=== PATIENT | male | born 1990 | race Two or more races ===

== ENCOUNTER 2020-04-02 20:15 | Emergency (ER) | payer OTHER, SELFPAY ==
--- NOTE | ~2020-04-02 | XR_ITS ---
EXAMINATION: XR ankle LT min 3V DATE: 04/02/2020 20:58 INDICATION: Left ankle pain after fall TECHNIQUE: Anteroposterior, lateral, mortise, and additional oblique view of the ankle were obtained. COMPARISON: 03/05/2017 FINDINGS: A subtle oblique lucency is seen in the posterior aspect of the distal tibia on the lateral view. No additional acute osseous findings are suspected. Surgical changes are noted in the calcaneu s and midfoot. IMPRESSION: 1. Subtle oblique lucency in the posterior aspect of the distal tibia which could reflect nondisplace d fracture. Reviewed, dictated and finalized at location A. IMPRESSION: 1. Subtle oblique lucency in the posterior aspect of the distal tibia which cou ld reflect nondisplaced fracture.
[2020-04-02 20:18] VITALS: BP 163/112; PULSE 93; RESP 16; TEMP 37.6; O2SAT 99
--- NOTE | 2020-04-02 21:37 | ED.LOWEXIN ---
HPI - Extremity Injury (Lower) General Chief Complaint: Extremity Injury, Lower Stated Complaint: fall down 10 stairs, left foot pain Time Seen by Provider: 04/02/20 20:22 History of Present Illness HPI Narrative: Patient is a 29-year-old male who presents the ER with left ankle pain. Patient fell down some stairs and is unsure how twisted. He did not strike his head or lose consciousness. He has mild tingling over the dorsum of the foot. Range of motion intact. Pain radiates from the left medial malleolus into the Achilles. No issues with plantar flexion. Has pain with bearing weight. Elevated temperature here but denies fevers. Reports he is working from home. Related Data Allergies Allergy/AdvReac Type Severity Reaction Status Date / Time amoxicillin Allergy Unknown Verified 03/05/17 11:15 Review of Systems Constitutional: Constitutional: Denies chills, Denies fever(s) and Denies weakness ENT: Denies nasal congestion and Denies sore throat Musculoskeletal: Musculoskeletal: Reports arthralgias and Reports joint swelling PMFSH Past Medical History Medical History (Updated 04/02/20 @ 21:47 by Jd Meijas MD) Clubfoot Surgical History Surgical History (Updated 04/02/20 @ 21:42 by Jd Mejias MD) H/O foot surgery Social History Social History (Updated 04/02/20 @ 21:43 by Jd Mejias MD) Smoking status: Never smoker Exam Narrative: Exam Narrative: GENERAL: Well-appearing, well-nourished, and in no acute distress. HEAD: Normocephalic, atraumatic. EXTREMITIES: Normal range of motion of left lower extremity.. Mild swelling anterior to the left medial malleolus with tenderness. Additional posterior medial malleoli or tenderness. Intact patellar tendon with palpation and with reflexive plantarflexion with calf squeezing. Normal dorsalis and posterior tibial pulses. Sharp touch intact. SKIN: Warm, dry, no rash. NEURO: No focal deficits. Alert and oriented x3. PSYCH: Normal mood and affect. Course Course Emergency Course: Informed of results. research tech placing splint. Patient will be given crutches. Does not require work note. Vital Signs Vital signs: Vital Signs Temperature 99.7 F H 04/02/20 20:18 Pulse Rate 93 04/02/20 20:18 Respiratory Rate 16 04/02/20 20:18 Blood Pressure 163/112 H 04/02/20 20:18 Pulse Oximetry 99 04/02/20 20:18 Temperature 99.7 F H 04/02/20 20:18 Pulse Rate 93 04/02/20 20:18 Respiratory Rate 16 04/02/20 20:18 Blood Pressure 163/112 H 04/02/20 20:18 Pulse Oximetry 99 04/02/20 20:18 Procedures Orthopedic Splinting/Casting Injury #1: Splinting/Casting Date: 04/02/20 Splinting/Casting Time: 21:44 Side: left Lower Extremity Injury Location: ankle Lower Extremity Immobilizer: stirrup splint Splint: customized in ED OCL: stirrup Pre-Procedure Neuro Vascular Exam: normal Post-Procedure Neuro Vascular Exam: normal Other Orthopedic Equipment: crutches MDM - Extremity Injury (Lower) Imaging Data Radiologist's impression: ITS Impressions Ankle X-Ray 04/02/20 21:02 IMPRESSION: 1. Subtle oblique lucency in the posterior aspect of the distal tibia which could reflect nondisplaced fracture. Discharge Plan Discharge Clinical Impression: Medial malleolar fracture Qualifiers: Encounter type: initial encounter Fracture type: closed Fracture alignment: nondisplaced Laterality: left Qualified Code(s): S82.55XA - Nondisplaced fracture of medial malleolus of left tibia, initial encounter for closed fracture Patient Disposition: Home, Self-Care Condition: Stable Instructions: Ankle Fracture (ED), R.I.C.E. Treatment (ED) Additional Instructions: Return to the ER if you have chest pain or shortness of breath, you lose consciousness, you have increased pain in your lower extremity, or you have a cold blue toes. Prescriptions: New hydrocodone-ac
[2020-04-02 22:29] VITALS: BP 134/89; PULSE 89; RESP 18; TEMP 37.3; O2SAT 99
== END 2020-04-02 22:30 | disposition home or self-care (01) ==
PROVIDERS: Emergency Provider Emergency Medicine
DX: S82.55XA Nondisplaced fracture of medial malleolus of left tibia, initial encounter for closed fracture (principal); W10.9XXA Fall (on) (from) unspecified stairs and steps, initial encounter
CPT/HCPCS: 29515; 73610; 99284; A9270

== ENCOUNTER 2020-05-20 12:27 | Outpatient (CLI) | payer OTHER, SELFPAY ==
--- NOTE | ~2020-05-20 | XR_ITS ---
EXAMINATION: XR abdomen obstructive series DATE: 05/20/2020 12:58 INDICATION: Lower abdomen pain TECHNIQUE: Supine and upright views of the abdomen. FINDINGS: No prior studies for comparison. The visualized lung parenchyma is normal.. There is a bowel gas pattern. Gas and stool are seen throu ghout the colon to the level of the rectum. There is no free air. IMPRESSION: 1. No acute abdominal abnormality. Reviewed, dictated and finalized at location A.
== END 2020-05-20 12:28 | disposition home or self-care (01) ==
PROVIDERS: Visit Provider Nurse Practitioner
DX: R10.30 Lower abdominal pain, unspecified (principal); R19.7 Diarrhea, unspecified
CPT/HCPCS: 74019

== ENCOUNTER 2021-01-04 12:24 | Emergency (ER) | payer OTHER, SELFPAY ==
[2021-01-04 12:45] VITALS: BP 150/89; PULSE 78; RESP 17; TEMP 36.4; O2SAT 99
--- NOTE | 2021-01-04 13:00 | PC.NURSE ---
pt denies new stressors. states things are going well in his relationship and doesnt understand why hes having the thoughts of self harm at this time. admits to having suicidal thoughts with a plan to overdose on pills. pt pleasant and cooperative with staff.
[2021-01-04 13:01] LABS: Basophils Percent Auto 0.4 % (0.2-1.2); Eosinophils Absolute Auto 0.1 K/mm3 (0-0.3); Hematocrit 47.9 % (42.0-52.0); Hemoglobin 16.3 g/dL (14.0-18.0); Immature Granulocyte Absolute 0.08 K/mm3 (0.00-0.031); Immature Granulocyte Percent A 0.8 % (0-0.5); Lymphocytes Absolute Auto 1.86 K/mm3 (0.9-3.2); Lymphocytes Percent Auto 18.2 % (18.3-44.2); Mean Corpuscular Hemoglobin 29.9 pg (26-34); Mean Corpuscular Volume 87.9 fl (80-100); Mean Platelet Volume 10.7 fl (7.4-10.4); Monocytes Absolute Auto 0.7 K/mm3 (0.1-0.6); Monocytes Percent Auto 6.4 % (2.6-8.5); Neutrophils Absolute Auto 7.5 K/mm3 (1.3-6.7); Neutrophils Percent Auto 73.2 % (45.5-73.1); Platelet Count Result 214 k/mm3 (150-375); Red Blood Count 5.45 M/mm3 (4.6-6.20); Red Cell Distribution Width 12.3 % (11.5-14.5); White Blood Count 10.2 K/mm3 (4.5-10.0)
[2021-01-04 13:15] LABS: Ethanol < 10 mg/dL (<10)
--- NOTE | 2021-01-04 13:44 | ED.GENADULT ---
HPI - General Adult General Chief complaint: Psychiatric Symptoms <Coral Almazan MD - Last Filed: 01/17/21 12:22> Stated complaint: SI <Coral Almazan MD - Last Filed: 01/17/21 12:22> Time Seen by Provider: 01/04/21 12:39 <Coral Almazan MD - Last Filed: 01/17/21 12:22> Source: patient <Coral Almazan MD - Last Filed: 01/17/21 12:22> History of Present Illness HPI narrative: Patient is a 30 y/o male complaining of having bad thoughts for 1 week. He is thinking about cutting his wrist or overdosing on drugs. There is no known alleviating or exacerbating factor. He admits using marijuana intermittently. <Coral Almazan MD - Last Filed: 01/17/21 12:22> Related Data Home medications: Home Medications Medication Instructions Recorded Confirmed bupropion HCl mg PO 01/04/21 01/04/21 sertraline mg 01/04/21 sertraline mg 01/04/21 trazodone 01/04/21 <Coral Almazan MD - Last Filed: 01/17/21 12:22> Allergies/adverse reactions: Allergies Allergy/AdvReac Type Severity Reaction Status Date / Time amoxicillin Allergy Unknown Unknown Verified 01/04/21 12:43 <Coral Almazan MD - Last Filed: 01/17/21 12:22> Review of Systems Constitutional: Constitutional: Denies chills, Denies fever(s), Denies headache(s) and Denies weakness <Coral Almazan MD - Last Filed: 01/17/21 12:22> Eyes: Eyes: Denies blurry vision <Coral Almazan MD - Last Filed: 01/17/21 12:22> ENT: Denies headache(s) and Denies neck pain <Coral Almazan MD - Last Filed: 01/17/21 12:22> Cardiovascular: Cardiovascular: Denies chest pain and Denies dyspnea <Coral Almazan MD - Last Filed: 01/17/21 12:22> Respiratory: Respiratory: Denies cough and Denies dyspnea <Coral Almazan MD - Last Filed: 01/17/21 12:22> Gastrointestinal: Gastrointestinal: Denies abdominal pain, Denies diarrhea, Denies nausea and Denies vomiting <Coral Almazan MD - Last Filed: 01/17/21 12:22> Genitourinary: Genitourinary: Denies hematuria and Denies dysuria <Coral Almazan MD - Last Filed: 01/17/21 12:22> Musculoskeletal: Musculoskeletal: Denies back pain and Denies neck pain <Coral Almazan MD - Last Filed: 01/17/21 12:22> Neurologic: Denies headache(s) and Denies weakness <Coral Almazan MD - Last Filed: 01/17/21 12:22> Psychiatric: Psychiatric: Reports as per HPI and Reports suicidal ideation <Coral Almazan MD - Last Filed: 01/17/21 12:22> PMFSH Past Medical History Medical History: Medical History Clubfoot Fracture of posterior malleolus of left tibia <Coral Almazan MD - Last Filed: 01/17/21 12:22> Surgical History Surgical History: Surgical History History of detached retina repair (~2011) History of foot surgery Arch Reconstruction Roland Feet (2008 & 2009) <Coral Almazan MD - Last Filed: 01/17/21 12:22> Family History Family History: Family History Unknown Skin cancer Arthritis Osteogenesis imperfecta <Coral Almazan MD - Last Filed: 01/17/21 12:22> Social History Social History: Social History Smoking status: Current every day smoker Alcohol intake: never Gender identity (if verbalized by the patient): Male <Coral Almazan MD - Last Filed: 01/17/21 12:22> Exam Const: General: no acute distress and well developed <Coral Almazan MD - Last Filed: 01/17/21 12:22> Orientation/consciousness: oriented to person, oriented to place, oriented to time and patient oriented x3 <Coral Almazan MD - Last Filed: 01/17/21 12:22> HENMT: Head: normocephalic <Coral Almazan MD - Last Filed: 01/17/21 12:22> Ears: external ears normal <Coral Almazan MD - Last Filed: 01/17/21 12:22> General nose exam: Normal external nose present <Coral Almazan MD - Last Filed: 01/17/21 12:22>
[2021-01-04 14:23] LABS: Add Urine Microscopic? YES; Appearance Urine Clear (Clear); Bacteria Urine Trace /hpf; Bilirubin Urine Negative (Negative); Blood Urine Negative (Negative); Color Urine Yellow (Yellow); Glucose Urine UA Negative (Negative); Ketones Urine Negative (Negative); Leukocyte Esterase Ur Negative LEU/UL (Negative); Mucus Urine Heavy /lpf; Nitrate Urine Negative (Negative); Protein Urine 2+ mg/dL (Negative); RBC Urine 0-2 /hpf (0-2); Specific Grav Ur 1.025 (1.001-1.035); Urobilinogen Urine Negative mg/dL (<2.0); WBC Urine 0-3 /hpf
[2021-01-04 14:44] LABS: Alanine Aminotransferase 37 U/L (4-50); Albumin Level 4.7 g/dL (3.5-5.1); Alkaline Phosphatase 90 U/L (38-126); Anion Gap 9 mmol/L (8-16); Aspartate Amino Transferase 36 U/L (17-59); Bilirubin,Total 0.4 mg/dL (0.2-1.3); Blood Urea Nitrogen 10 mg/dL (9-20); Calcium 9.8 mg/dL (8.4-10.2); Carbon Dioxide 27 mmol/L (22-30); Chloride 104 mmol/L (98-107); Estimated CRCL calculation 124 ml/min; Estimated Glomerular Filt Rate > 60; Glucose 95 mg/dL (75-110); Potassium 4.1 mmol/L (3.4-5.0); Sodium 140 mmol/L (137-145)
[2021-01-04 16:05] LABS: Amphetamine Screen Urine Negative (Negative); Barbiturate Screen Urine Negative (Negative); Benzodiazepines Screen Urine Negative (Negative); Cannabinoid Screen Urine Positive (Negative); Cocaine Screen Urine Negative (Negative); Methadone Screen Urine Negative (Negative); Opiate Screen Urine Negative (Negative); Phencyclidine Screen Urine Negative (Negative)
--- NOTE | 2021-01-04 20:22 | PC.NURSE ---
Counselor from Crisis was interviewing patient. Pt gave counselor a broken soda tab and said he was cutting his left arm with it. Noted scratches on left arm.
[2021-01-04 20:40] VITALS: BP 169/79; PULSE 68; RESP 16; TEMP 37.1; O2SAT 99
[2021-01-04 21:18] LABS: SARS-CoV-2 RNA PCR Negative
--- NOTE | 2021-01-04 22:34 | PC.NURSE ---
Spoke with Sj at [facility]. Dr. Swan willing to accept. Need drug screen and voluntary form faxed to them [phone]. Nurse from [facility] will call for report shortly.
[2021-01-04 23:00] VITALS: BP 147/105; PULSE 70; RESP 12; O2SAT 100
--- NOTE | 2021-01-04 23:00 | PC.NURSE ---
Assumed care of Pt. at this time. Report from Mylene, RN
--- NOTE | 2021-01-04 23:06 | PC.NURSE ---
1485Pedro Gamboa from [facility] called in regard to needing paperwork faxed to [phone]
--- NOTE | 2021-01-05 00:15 | PC.NURSE ---
faxed paperwork to [facility]
--- NOTE | 2021-01-05 01:15 | PC.NURSE ---
Pt. accepted at [facility]. PT. bed number 58-1. RN report given to BRE Fernando at [phone]
--- NOTE | 2021-01-05 01:26 | PC.NURSE ---
[facility] contacted for Pt. transport to [facility] [id number]
[2021-01-05 01:50] VITALS: BP 133/87; PULSE 86; RESP 12; O2SAT 97
== END 2021-01-05 02:50 ==
PROVIDERS: Emergency Medicine; Emergency Provider Emergency Medicine; PCP Registered Nurse
DX: R45.851 Suicidal ideations (principal); F17.200 Nicotine dependence, unspecified, uncomplicated; Z20.822 Contact with and (suspected) exposure to COVID-19
CPT/HCPCS: 36415; 80053; 80307; 81001; 84443; 85025; 99285; C9803; U0003; U0005

== ENCOUNTER 2021-03-29 07:48 | Emergency (ER) | payer OTHER, SELFPAY ==
[2021-03-29 07:57] VITALS: BP 162/81; PULSE 60; RESP 15; TEMP 36.2; O2SAT 100
--- NOTE | 2021-03-29 08:42 | PC.NURSE ---
Addendum entered by Christopher Olivera RN 03/29/21 13:37: Sitter at bedside per pt being high risk. States will continue to encourage pt to void. Original Note: Pt unable to void.
--- NOTE | 2021-03-29 08:55 | PC.NURSE ---
Attempts to void unsuccessful.
[2021-03-29 09:40] LABS: Basophils Percent Auto 0.6 % (0.2-1.2); Eosinophils Absolute Auto 0.1 K/mm3 (0-0.3); Eosinophils Percent Auto 1.1 % (0-4.4); Hematocrit 45.9 % (42.0-52.0); Hemoglobin 15.6 g/dL (14.0-18.0); Immature Granulocyte Absolute 0.05 K/mm3 (0.00-0.031); Immature Granulocyte Percent A 0.7 % (0-0.5); Lymphocytes Absolute Auto 1.67 K/mm3 (0.9-3.2); Mean Corpuscular Hemoglobin 29.8 pg (26-34); Mean Corpuscular Volume 87.8 fl (80-100); Mean Platelet Volume 10.3 fl (7.4-10.4); Monocytes Absolute Auto 0.5 K/mm3 (0.1-0.6); Monocytes Percent Auto 7.2 % (2.6-8.5); Neutrophils Absolute Auto 4.9 K/mm3 (1.3-6.7); Neutrophils Percent Auto 67.4 % (45.5-73.1); Platelet Count Result 214 k/mm3 (150-375); Red Blood Count 5.23 M/mm3 (4.6-6.20); Red Cell Distribution Width 12.4 % (11.5-14.5); White Blood Count 7.3 K/mm3 (4.5-10.0)
--- NOTE | 2021-03-29 09:46 | ED.PSYCH ---
HPI - Psych General Chief Complaint: Psychiatric Symptoms Stated Complaint: thoughts of self harm Time Seen by Provider: 03/29/21 07:56 History of Present Illness HPI Narrative: Patient is a 30-year-old male who presents ER with thoughts of self-harm. He had thoughts of putting himself in the shower and overdosing his home medications. He takes sertraline for depression. He has been hospitalized in the past. No recent self-mutilation. Denies any intoxicants. Self-harm thoughts began 2 days ago. Related Data Home Medications Medication Instructions Recorded Confirmed bupropion HCl mg PO 01/04/21 01/04/21 sertraline mg 01/04/21 sertraline mg 01/04/21 trazodone 01/04/21 Allergies Allergy/AdvReac Type Severity Reaction Status Date / Time amoxicillin Allergy Unknown Unknown Verified 01/04/21 12:43 Review of Systems Review of Systems: All systems reviewed & are unremarkable except as noted in HPI and below Constitutional: Constitutional: Denies chills, Denies fever(s) and Denies weakness Respiratory: Respiratory: Denies cough and Denies dyspnea Gastrointestinal: Gastrointestinal: Denies abdominal pain, Denies nausea and Denies vomiting Psychiatric: Psychiatric: Denies anxiety, Reports depression, Denies homicidal ideation and Reports suicidal ideation PMFSH Past Medical History Medical History Clubfoot Fracture of posterior malleolus of left tibia Surgical History Surgical History History of detached retina repair (~2011) History of foot surgery Arch Reconstruction Roalnd Feet (2008 & 2009) Family History Family History Unknown Skin cancer Arthritis Osteogenesis imperfecta Social History Social History Smoking status: Current every day smoker Alcohol intake: never Substance use type: marijuana Gender identity (if verbalized by the patient): Male Exam Narrative: Exam Narrative: GENERAL: Well-appearing, well-nourished, and in no acute distress. HEAD: Normocephalic, atraumatic. CHEST: Clear to auscultation. No respiratory distress. HEART: Regular rate and rhythm. Normal peripheral pulses. ABDOMEN: Soft, nontender, nondistended. EXTREMITIES: Normal range of motion. No edema. SKIN: Warm, dry, no rash. NEURO: Alert and oriented x3. PSYCH: Endorses thoughts of suicidality, normal affect, cooperative, not responding to internal stimuli. Course Course Emergency Course: Patient is medically stable. Reevaluation(s) Reevaluation #1: Accepted to [facility] by Dr. Cabrera. Date: 03/29/21 Time: 17:36 Vital Signs Vital signs: Vital Signs Temperature 97.1 F L 03/29/21 07:57 Pulse Rate 60 03/29/21 07:57 Respiratory Rate 15 03/29/21 07:57 Blood Pressure 162/81 H 03/29/21 07:57 Pulse Oximetry 100 03/29/21 07:57 Temperature 97.1 F L 03/29/21 07:57 Pulse Rate 60 03/29/21 07:57 Respiratory Rate 15 03/29/21 07:57 Blood Pressure 162/81 H 03/29/21 07:57 Pulse Oximetry 100 03/29/21 07:57 MDM - Psych Lab Data Result diagrams: 03/29/21 09:30 03/29/21 09:30 Labs: Lab Results 03/29/21 03/29/21 03/29/21 Range/Units 09:30 09:30 09:30 WBC 7.3 (4.5-10.0) K/mm3 RBC 5.23 (4.6-6.20) M/mm3 Hgb 15.6 (14.0-18.0) g/dL Hct 45.9 (42.0-52.0) % MCV 87.8 (80-100) fl MCH 29.8 (26-34) pg MCHC 34.0 (32-36) g/dl RDW 12.4 (11.5-14.5) % Plt Count 214 (150-375) k/mm3 MPV 10.3 (7.4-10.4) fl Immature Gran % (Auto) 0.7 H (0-0.5) % Neut % (Auto) 67.4 (45.5-73.1) % Lymph % (Auto) 23.0 (18.3-44.2) % [place] % (Auto) 7.2 (2.6-8.5) % Eos % (Auto) 1.1 (0-4.4) % Baso % (Auto) 0.6 (0.2-1.2) % Lymph # (Auto) 1.67 (0.9-3.2) K/mm3 [place] # (Auto) 0.5 (0.1-0.6) K/mm3
--- NOTE | 2021-03-29 09:46 | PC.NURSE ---
Addendum entered by Christopher Olivera RN 03/29/21 13:57: afterschool babysitter remains at bedside. Pt remains calm and cooperative. Original Note: Pt swabbed for covid per orders.
[2021-03-29 09:51] LABS: Ethanol < 10 mg/dL (<10)
[2021-03-29 10:06] LABS: Alanine Aminotransferase 31 U/L (4-50); Albumin Level 4.6 g/dL (3.5-5.1); Alkaline Phosphatase 77 U/L (38-126); Anion Gap 6 mmol/L (8-16); Aspartate Amino Transferase 30 U/L (17-59); Bilirubin,Total 0.3 mg/dL (0.2-1.3); Blood Urea Nitrogen 12 mg/dL (9-20); Calcium 9.7 mg/dL (8.4-10.2); Carbon Dioxide 26 mmol/L (22-30); Chloride 106 mmol/L (98-107); Estimated CRCL calculation 141 ml/min; Estimated Glomerular Filt Rate > 60; Glucose 103 mg/dL (75-110); Potassium 4.3 mmol/L (3.4-5.0); Sodium 138 mmol/L (137-145)
--- NOTE | 2021-03-29 10:11 | PC.NURSE ---
Pt given water po in an attempt to void.
[2021-03-29 11:51] LABS: Add Urine Microscopic? YES; Appearance Urine Clear (Clear); Bilirubin Urine Negative (Negative); Blood Urine Negative (Negative); Color Urine Yellow (Yellow); Glucose Urine UA Negative (Negative); Ketones Urine Negative (Negative); Leukocyte Esterase Ur Negative LEU/UL (Negative); Mucus Urine Moderate /lpf; Nitrate Urine Negative (Negative); Protein Urine 1+ mg/dL (Negative); Specific Grav Ur 1.014 (1.001-1.035); Squamous Epithelial Cell Urine Rare /hpf (Few); Urobilinogen Urine Negative mg/dL (<2.0); WBC Urine 0-3 /hpf
--- NOTE | 2021-03-29 11:51 | PC.NURSE ---
Addendum entered by Christopher Olivera RN 03/29/21 13:57: 1:1 sitter observation continues. Original Note: Pt voided and urine sent. Offered lunch and pt declines at this time.
[2021-03-29 12:20] LABS: Barbiturate Screen Urine Negative (Negative); Benzodiazepines Screen Urine Negative (Negative)
[2021-03-29 12:26] LABS: Amphetamine Screen Urine Negative (Negative); Cannabinoid Screen Urine Positive (Negative); Cocaine Screen Urine Negative (Negative); Methadone Screen Urine Negative (Negative); Opiate Screen Urine Negative (Negative); Phencyclidine Screen Urine Negative (Negative)
--- NOTE | 2021-03-29 12:32 | PC.NURSE ---
Pt asleep on stretcher, snoring softly. 1:1 sitter observation continues.
--- NOTE | 2021-03-29 13:37 | PC.NURSE ---
[facility] here for evaluation.
--- NOTE | 2021-03-29 15:30 | PC.NURSE ---
Meal ordered per sitter. Crisis here faxing chart to [facility], and a face sheet to [facility].
--- NOTE | 2021-03-29 16:57 | PC.NURSE ---
Addendum entered by Christopher Olivera RN 03/29/21 17:02: Benito also says that he wants to be notified when the covid swab comes back. Original Note: Call received from Benito at [facility]. Requests face sheet be faxed to him. Pt continues to rest quietly on stretcher. 1:1 sitter observation continues.
--- NOTE | 2021-03-29 17:30 | PC.NURSE ---
Call received from Rosemary in intake at [facility], [place]. States the pt has been accepted there as an inpatient per Dr. Castillo. Transfer consent signed.
--- NOTE | 2021-03-29 18:07 | PC.NURSE ---
pt's face sheet and covid questionairre faxed to [facility]
--- NOTE | 2021-03-29 18:50 | PC.NURSE ---
Call to [facility] at [phone] to attempt to give report for transfer. States that the nurses are getting report at the current time and that they will return call.
[2021-03-29 18:55] LABS: SARS-CoV-2 RNA PCR Negative
--- NOTE | 2021-03-29 19:16 | PC.NURSE ---
Called and spoke to BRE Garza at [facility] to give report. He states that because the covid test isnt resulted, his charge nurse states they cannot take the patient. Given a line to call back when the result is negative, and hopefully a bed will still be available . Called back to [facility] intake at [phone], and spoke with staff. States that was not their understanding and that they will have someone return call [facility].
--- NOTE | 2021-03-29 19:38 | PC.NURSE ---
Report to [facility]. EMS being contacted for transport. Report to BRE Bell, to continue care until pt is transferred from . 1:[address] Pt updated on awaiting EMS.
--- NOTE | 2021-03-29 19:44 | PC.NURSE ---
called [facility] to request transport. ETA midnight. called [facility]. No trucks available.
--- NOTE | 2021-03-29 19:51 | PC.NURSE ---
Called [facility] to request transport. [facility] declined.
[2021-03-29 22:30] VITALS: BP 143/79; PULSE 62; RESP 18; TEMP 36.8; O2SAT 97
--- NOTE | 2021-03-29 23:39 | PC.NURSE ---
[facility] here.
== END 2021-03-30 00:06 ==
PROVIDERS: Emergency Provider Emergency Medicine; PCP Registered Nurse
DX: F32.9 Major depressive disorder, single episode, unspecified (principal); R45.851 Suicidal ideations; F17.200 Nicotine dependence, unspecified, uncomplicated; Z20.822 Contact with and (suspected) exposure to COVID-19
CPT/HCPCS: 36415; 80053; 80307; 81001; 84443; 85025; 99285; C9803; U0003; U0005

== ENCOUNTER 2022-11-02 13:06 | Emergency (ER) | payer OTHER, SELFPAY ==
[2022-11-02 13:40] VITALS: BP 146/100; PULSE 89; RESP 16; TEMP 36.8; O2SAT 99
--- NOTE | 2022-11-02 13:46 | ED.PSYCH ---
HPI - Psych General Chief Complaint: Psychiatric Symptoms Stated Complaint: SI Time Seen by Provider: 11/02/22 13:08 History of Present Illness HPI Narrative: 32-year-old male history of anxiety and depression presents to the emergency room for evaluation of depression with suicidal ideation. Patient states that he had thoughts last night wanting to hurt himself, and attempted to wrap a cord around his neck but stopped himself before committing the accident. Patient stated history of anxiety and depression and he has not been taking his medications for 8 months. Patient denies any thoughts of hurting other people. Patient endorses a history of suicidal ideation. Related Data Home Medications Medication Instructions Recorded Confirmed bupropion HCl 150 mg 24 hr tablet, mg PO 01/04/21 01/04/21 extended release sertraline 100 mg tablet mg 01/04/21 sertraline 50 mg tablet mg 01/04/21 trazodone 50 mg tablet 01/04/21 Allergies Allergy/AdvReac Type Severity Reaction Status Date / Time amoxicillin Allergy Unknown Unknown Verified 11/02/22 13:06 Review of Systems Review of Systems: CONSTITUTIONAL: Denies fever, chills, or sweats. EYES: Denies visual changes, redness, or discharge. ENT: Denies rhinorrhea, congestion, sore throat, or otalgia. CARDIOVASCULAR: Denies chest pain, palpitations, or edema. RESPIRATORY: Denies cough or dyspnea. GASTROINTESTINAL: Denies abdominal pain, nausea, vomiting, or diarrhea. GENITOURINARY: Denies dysuria or hematuria. SKIN: Denies rash or itching. MUSCULOSKELETAL: Denies back pain, joint pain, or myalgia. NEUROLOGIC: Denies headache, numbness, dizziness, or weakness. PSYCHIATRIC: Reports anxiety or depression. [facility] Past Medical History Medical History Clubfoot Fracture of posterior malleolus of left tibia Surgical History Surgical History History of detached retina repair (~2011) History of foot surgery Arch Reconstruction Roland Feet (2008 & 2009) Family History Family History Unknown Skin cancer Arthritis Osteogenesis imperfecta Social History Social History Smoking status: Current every day smoker Alcohol intake: never Substance use type: marijuana Gender identity (if verbalized by the patient): Male Exam Narrative: GENERAL: Well-appearing, well-nourished, no physical limitations, and in no acute distress. HEAD: Normocephalic, atraumatic. EYES: Conjunctivae normal, PERRLA and EOMI. CHEST: Clear to auscultation. No respiratory distress. No wheezes rales or rhonchi. HEART: Regular rate and rhythm. No murmur heard. Normal peripheral pulses. EXTREMITIES: Normal range of motion. No edema. No clubbing or cyanosis SKIN: Warm, dry, no rash. No noted wounds NEURO: No focal deficits. Alert and oriented x3. MAEW. CN's II-XI intact bilaterally, normal gait PSYCH: Cooperative. Depressed affect and tearful. Course Course Emergency Course: 1500: Patient is medically clear. Crisis has been notified. Vital Signs Vital signs: Vital Signs Temperature 36.8 C 11/02/22 13:40 Pulse Rate 89 11/02/22 13:40 Respiratory Rate 16 11/02/22 13:40 Blood Pressure 146/100 H 11/02/22 13:40 Pulse Oximetry 99 11/02/22 13:40 Temperature 36.8 C 11/02/22 13:40 Pulse Rate 71 11/03/22 12:49 Respiratory Rate 16 11/03/22 12:49 Blood Pressure 142/98 H 11/03/22 12:49 Pulse Oximetry 99 11/03/22 12:49 MDM - Psych Lab Data 11/02/22 13:39 11/02/22 13:39 Labs: Lab Results 11/02/22 11/02/22 11/02/22 Range/Units 13:39 13:39 13:39 WBC 9.4 (4.5-10.0) K/mm3 RBC 5.63 (4.6-6.20) M/mm3 Hgb 16.8 (14.0-18.0) g/dL Hct 50.1 (42.0-52.0) % MCV 89.0 (80-100) fl MCH 29.8 (26-34)
[2022-11-02 13:50] LABS: Add Urine Microscopic? YES; Appearance Urine Clear (Clear); Bilirubin Urine 1+ (Negative); Blood Urine Negative (Negative); Color Urine Yellow (Yellow); Glucose Urine UA Negative (Negative); Ketones Urine Negative (Negative); Leukocyte Esterase Ur Negative LEU/UL (Negative); Nitrate Urine Negative (Negative); Protein Urine 2+ mg/dL (Negative); Specific Grav Ur >= 1.030 (1.001-1.035); Urobilinogen Urine 0.2 mg/dL (<2.0); pH Urine 5.5 (5.0-9.0)
[2022-11-02 13:55] LABS: Bacteria Urine Trace /hpf; Mucus Urine Heavy /lpf; RBC Urine 0-2 /hpf (0-2); Squamous Epithelial Cell Urine Rare /hpf (Few); WBC Urine 0-3 /hpf
[2022-11-02 13:59] LABS: Acetaminophen < 10 ug/mL (10-30); Anion Gap 9 mmol/L (8-16); Blood Urea Nitrogen 10 mg/dL (9-20); Calcium 9.3 mg/dL (8.4-10.2); Carbon Dioxide 29 mmol/L (22-30); Chloride 101 mmol/L (98-107); Estimated CRCL calculation 137 ml/min; Estimated Glomerular Filt Rate > 60; Ethanol < 10 mg/dL (<10); Glucose 107 mg/dL (65-110); Sodium 139 mmol/L (137-145)
[2022-11-02 14:06] LABS: Amphetamine Screen Urine Negative (Negative); Barbiturate Screen Urine Negative (Negative); Benzodiazepines Screen Urine Negative (Negative); Cannabinoid Screen Urine Positive (Negative); Cocaine Screen Urine Negative (Negative); Methadone Screen Urine Negative (Negative); Opiate Screen Urine Negative (Negative); Phencyclidine Screen Urine Negative (Negative)
[2022-11-02 14:30] LABS: Influenza A QL RT-PCR Negative (Negative); Influenza B QL RT-PCR Negative (Negative); RSV RNA, RT-PCR Negative (Negative); SARS-CoV-2 RNA PCR Negative
[2022-11-02 14:55] LABS: Basophils Percent Auto 0.4 % (0.2-1.2); Eosinophils Absolute Auto 0.1 K/mm3 (0-0.3); Eosinophils Percent Auto 0.7 % (0-4.4); Hematocrit 50.1 % (42.0-52.0); Hemoglobin 16.8 g/dL (14.0-18.0); Immature Granulocyte Absolute 0.04 K/mm3 (0.00-0.031); Immature Granulocyte Percent A 0.4 % (0-0.5); Lymphocytes Absolute Auto 2.35 K/mm3 (0.9-3.2); Lymphocytes Percent Auto 25.1 % (18.3-44.2); Mean Corpuscular HGB Conc 33.5 g/dl (32-36); Mean Corpuscular Hemoglobin 29.8 pg (26-34); Mean Platelet Volume 11.3 fl (7.4-10.4); Monocytes Absolute Auto 0.7 K/mm3 (0.1-0.6); Monocytes Percent Auto 7.1 % (2.6-8.5); Neutrophils Absolute Auto 6.2 K/mm3 (1.3-6.7); Neutrophils Percent Auto 66.3 % (45.5-73.1); Platelet Count Result 256 k/mm3 (150-375); Red Blood Count 5.63 M/mm3 (4.6-6.20); Red Cell Distribution Width 12.6 % (11.5-14.5); White Blood Count 9.4 K/mm3 (4.5-10.0)
--- NOTE | 2022-11-02 15:33 | PC.NURSE ---
food tray ordered
--- NOTE | 2022-11-02 20:15 | PC.NURSE ---
[facility] intake called at this time to speak with patient regarding evaluation
--- NOTE | 2022-11-02 22:56 | PC.NURSE ---
Called [facility] at [phone] and spoke to Lise charge nurse. Patient has been accepted by Dr Garces and will have a bed available at approx 0800. There are no clean beds available tonight at facility. Patient aware and verbalizes understanding
--- NOTE | 2022-11-03 08:33 | PC.NURSE ---
precautionary reg diet food tray ordered
--- NOTE | 2022-11-03 08:47 | PC.NURSE ---
Called [facility] for update. No bed available at this time. [facility] will call when bed is available and report can be given at that time.
--- NOTE | 2022-11-03 10:19 | PC.NURSE ---
Report given to Sanjana at [facility]. Bed is available and transport can be arranged.
--- NOTE | 2022-11-03 11:38 | PC.NURSE ---
reg diet precautionary food tray ordered
[2022-11-03 12:49] VITALS: BP 142/98; PULSE 71; RESP 16; O2SAT 99
--- NOTE | 2022-11-03 13:12 | PC.NURSE ---
Per [facility] dispatch, 15-20 minute eta.
== END 2022-11-03 13:44 ==
PROVIDERS: Emergency Provider Nurse Practitioner Family; PCP Registered Nurse
DX: R45.851 Suicidal ideations (principal); Z20.822 Contact with and (suspected) exposure to COVID-19; F32.A Depression, unspecified; F41.9 Anxiety disorder, unspecified; Z91.14 Patient's other noncompliance with medication regimen; F17.200 Nicotine dependence, unspecified, uncomplicated
CPT/HCPCS: 36415; 80048; 80307; 81001; 84443; 85025; 87637; 99285